=== PATIENT | female | born 1935 | race Caucasian/White ===

== ENCOUNTER 2016-06-24 10:57 | Day surgery (SDC) | payer MEDICARE, OTHER ==
[2009-01-17 12:58] VITALS: BP 118/67
[~2016-06-24] VITALS: Ht 160.1 cm; Wt 78.0 kg
[~2016-06-24 10:57] MED LIST: ACAI BERRY; ALDACTONE25 MG PO; ALLOPURINOL300 MG PO; BIOFLAX1000 MG PO; BISTOLIC; BYSTOLIC10 MG PO; CALCIUM 600600 M2 PO; CARAFATE 1GM1 G PO; CO ENZYME Q-1050 MG PO; CO-Q1060 MG PO; COENZYME Q-10200 M1 PO; COUMADIN3 MG PO; EPA FISH OIL1000 MG PO; EVISTA60 MG PO; FLAX SEED OIL1000 MG PO; FLEXERIL 1010 MG/TAB PO; FRIENDLY FLORA; IRON325 M1 PO; LASIX 20MG TABL20 MG PO; LASIX 40MG TABL40 MG PO; LASIX40 MG PO; LASIX80 MG PO; LEXAPRO20 MG PO; LIDOCAINE PATCH TOP; LIDODERM PATCH TP; LISINOPRIL20 MG PO; MAGNESIUM200 MG PO; MIRALAX PA17 GM/Dose; MIRALAX PA17 GM/Dose PO; MULTIPLE VITAMI1 CAP PO; NAPROSYN500 MG PO; NORCO 325 MG-7.1 TAB PO; OCUVITE ADULT1 SGL PO; OMEGA 31000 MG PO; OYSTER CALCIUM500 M1 PO; PANCREASE MT PO; PRILOSEC 20MG20 MG PO; PROBIOTIC FORMU1 CAP PO; PROTONIX 40MG T40 MG PO; RECLAST5 MG/100 M IV; RECLAST5 MG/1001; RECLAST5 MG/1001 IV; RELAFEN 50500 MG/TAB PO; RESERVATROL; RESERVATROL PO; ROXICODONE 55 MG/TAB PO; SINGULAIR 110 MG/TAB PO; SINGULAIR10 MG PO; SUPER EPA 2002000 MG PO; TYLENOL 500MG500 MG PO; ULTIMATE EYE SUPPORT PO; ULTRAM 50MG TAB50 MG PO; VITAMIN B COMPL1 T16; VITAMIN B12250 MCG PO; VITAMIN B122500 MCG SL; VITAMIN B12500 MCG PO; VITAMIN C BUFF500 MG PO; VITAMIN C500 MG PO; VITAMIN D 1001000 IU; VITAMIN D1000 IU PO; WELCHOL 625MG625 MG PO; ZANTAC150 MG PO; ZESTRIL20 MG PO; [UNRECOGNIZED DRUG - OTHER]
[2016-06-24] MEDS ORDERED: ZESTRIL 20MG TA20 MG PO (11:15)
[2016-06-24] MEDS ORDERED: ZYLOPRIM 300MG300 MG PO (11:15)
[2016-06-24] MEDS ORDERED: FLAX OIL1000 MG PO (11:16)
[2016-06-24] MEDS ORDERED: OYSTER SHELL C500 M4 PO (11:16)
[2016-06-24] MEDS ORDERED: ALDACTONE 25MG25 M1 PO (11:16)
[2016-06-24] MEDS ORDERED: B-12 250 MCG PO (11:17)
[2016-06-24 11:35] VITALS: BP 133/97; PULSE 75; TEMP 97.7
[2016-06-24 11:39] LABS: HEMATOCRIT 40.4 % (37.0-47.0); HEMOGLOBIN 14.2 g/dl (12.5-16.0); MEAN CELL VOLUME 97 fl (80.0-100.0); MEAN CORPUSCULAR HEMOGLOBIN 34 pg (27.0-31.0); MEAN CORPUSCULAR HGB CONC 35 g/dl (33.0-37.0); MEAN PLATELET VOLUME 9.1 fl (7.4-10.4); PLATELET COUNT 226 K/mm3 (130-400); RED BLOOD COUNT 4.15 M/mm3 (4.10-5.30); REDCELL DISTRIBUTION WIDTH-CV 14.7 % (11.5-14.5)
[2016-06-24] MEDS ORDERED: ZANTAC 150MG T150 MG PO (11:41)
[2016-06-24] MEDS ORDERED: COZAAR 50MG50 MG/TAB PO (11:42)
[2016-06-24 11:44] LABS: PROTHROMBIN TIME 11.5 SECONDS (9.7-12.8)
[2016-06-24] MEDS ORDERED: LASIX 80MG TABL80 MG PO (11:45)
[2016-06-24] MEDS ORDERED: CLARITIN 1010 MG/TAB PO (11:47)
[2016-06-24] MEDS ORDERED: MOBIC15 MG PO (11:48)
[2016-06-24] MEDS ORDERED: MAG-OX 400400 MG/TAB PO (11:48)
[2016-06-24] MEDS ORDERED: GLUMETZA500 MG PO (11:48)
[2016-06-24] MEDS ORDERED: ZOFRAN 4MG T4 MG/TAB PO (11:49)
[2016-06-24 11:50] LABS: CALCIUM 9.4 mg/dL (8.4-10.2); CREATININE, serum 1.32 mg/dL (0.52-1.25)
[2016-06-24] MEDS ORDERED: ULTRAM 50MG TAB50 MG PO (11:50)
[2016-06-24 12:40] VITALS: BP 127/75; PULSE 70
[2016-06-24 13:40] VITALS: BP 110/82; PULSE 70
[2016-06-24 14:00] VITALS: BP 108/65; PULSE 70
[2016-06-24 14:15] VITALS: BP 111/68; PULSE 70
[2016-06-24 14:30] VITALS: BP 111/68; PULSE 70
[2016-06-24] MEDS ORDERED: CLEOCIN HCL75 MG PO (14:47)
== END 2016-06-24 18:58 | disposition home or self-care (01) ==
LOC: COL.CAR 10:57
PROVIDERS: Internal Medicine Cardiovascular Disease
DX: Z45.010 Encounter for checking and testing of cardiac pacemaker pulse generator [battery] (principal); I42.9 Cardiomyopathy, unspecified; E78.2 Mixed hyperlipidemia; I10 Essential (primary) hypertension; J44.9 Chronic obstructive pulmonary disease, unspecified; F32.9 Major depressive disorder, single episode, unspecified; Z85.3 Personal history of malignant neoplasm of breast; E11.9 Type 2 diabetes mellitus without complications; M10.9 Gout, unspecified; E78.5 Hyperlipidemia, unspecified; G47.00 Insomnia, unspecified; M19.90 Unspecified osteoarthritis, unspecified site; M81.0 Age-related osteoporosis without current pathological fracture; G47.30 Sleep apnea, unspecified; Z95.0 Presence of cardiac pacemaker; Z79.899 Other long term (current) drug therapy; Z79.84 Long term (current) use of oral hypoglycemic drugs
CPT/HCPCS: C2621; J2250; J3010; J3370; J7030; J7050

== ENCOUNTER → 2017-03-05 | Outpatient (CLI) | payer MEDICARE, OTHER ==
[~2017-03-05] MED LIST changes: +ALDACTONE 25MG25 M1 PO; +B-12 250 MCG PO; +CLARITIN 1010 MG/TAB PO; +CLEOCIN HCL75 MG PO; +COZAAR 50MG50 MG/TAB PO; +FLAX OIL1000 MG PO; +GLUMETZA500 MG PO; +LASIX 80MG TABL80 MG PO; +MAG-OX 400400 MG/TAB PO; +MOBIC15 MG PO; +OYSTER SHELL C500 M4 PO; +ZANTAC 150MG T150 MG PO; +ZESTRIL 20MG TA20 MG PO; +ZOFRAN 4MG T4 MG/TAB PO; +ZYLOPRIM 300MG300 MG PO
== END ==
LOC: COL.PUL 12:54
DX: I50.42 Chronic combined systolic (congestive) and diastolic (congestive) heart failure (principal)

== ENCOUNTER 2017-07-17 13:35 | Inpatient (IN) | payer MEDICARE, OTHER ==
[~2017-07-17] VITALS: Ht 154.9 cm; Wt 80.9 kg
[~2017-07-17 13:35] MED LIST changes: -BYSTOLIC10 MG PO; +BYSTOLIC5 MG PO; +EPA FISH OIL1 SGL PO; +GLUCOPHAGE XR500 M1 PO; -GLUMETZA500 MG PO; -OMEGA 31000 MG PO
[2017-07-17 15:08] VITALS: BP 99/52; PULSE 79; TEMP 99.3
[2017-07-17] MEDS ORDERED: VENTOLIN0.09 MG IH (15:09)
[2017-07-17] MEDS ORDERED: ALBUTEROL0.83 MG/ML IH (15:10)
[2017-07-17] MEDS ORDERED: ZAROXOLYN5 MG PO (16:56)
[2017-07-17] MEDS ORDERED: CREON 36000 PO (16:58)
[2017-07-17 17:02] LABS: CALCIUM 8.7 mg/dL (8.4-10.2); CREATININE, serum 1.1 mg/dL (0.52-1.25); MAGNESIUM 2.7 mg/dL (1.6-2.3)
[2017-07-17 19:51] VITALS: BP 104/47; PULSE 80; TEMP 98.1
[2017-07-17 22:48] VITALS: BP 157/51; PULSE 67; TEMP 98
[2017-07-17 23:18] LABS: CALCIUM 8.4 mg/dL (8.4-10.2); CREATININE, serum 1.04 mg/dL (0.52-1.25)
[2017-07-17 23:33] VITALS: BP 101/49; PULSE 82; TEMP 98.3
[2017-07-18 03:18] VITALS: BP 117/60; PULSE 79; TEMP 98
[2017-07-18 04:23] LABS: CALCIUM 8.6 mg/dL (8.4-10.2); CREATININE, serum 0.95 mg/dL (0.52-1.25); POTASSIUM 3.3 mmol/L (3.4-5.0)
[2017-07-18 07:38] LABS: BASO % 0.9 % (0.0-2.0); EOS # 0.1 (0.0-0.7); EOS % 1.7 % (0-4.0); GRAN # 2.4 (1.4-6.5); GRAN % 67.5 % (42.2-75.2); HEMOGLOBIN 12.1 g/dl (12.5-16.0); LYMPH # 0.5 (1.2-3.4); LYMPH % 14.8 % (20.0-51.0); MEAN CELL VOLUME 103 fl (80.0-100.0); MEAN CORPUSCULAR HEMOGLOBIN 37 pg (27.0-31.0); MEAN CORPUSCULAR HGB CONC 36 g/dl (33.0-37.0); MONO # 0.5 (0.1-0.6); MONO % 14.5 % (1.7-9.3); PLATELET COUNT 196 K/mm3 (130-400); RED BLOOD COUNT 3.24 M/mm3 (4.10-5.30); REDCELL DISTRIBUTION WIDTH-CV 13.8 % (11.5-14.5)
[2017-07-18 07:47] LABS: HEMATOCRIT 33.3 % (37.0-47.0)
[2017-07-18 07:53] LABS: CALCIUM 8.6 mg/dL (8.4-10.2); CREATININE, serum 0.96 mg/dL (0.52-1.25); POTASSIUM 3.1 mmol/L (3.4-5.0)
[2017-07-18 08:13] VITALS: BP 111/53; PULSE 78; TEMP 97.8
[2017-07-18 11:51] VITALS: BP 111/51; PULSE 80; TEMP 97.8
[2017-07-18 16:13] VITALS: BP 118/62; PULSE 79; TEMP 97.8
[2017-07-18 17:50] LABS: CALCIUM 8.8 mg/dL (8.4-10.2); CREATININE, serum 0.98 mg/dL (0.52-1.25); POTASSIUM 3.6 mmol/L (3.4-5.0)
[2017-07-18 20:02] VITALS: BP 160/93; PULSE 80; TEMP 98.2
[2017-07-18 23:31] VITALS: BP 119/59; PULSE 80; TEMP 97.9
[2017-07-19 04:23] VITALS: BP 131/70; PULSE 80; TEMP 98.2
[2017-07-19 06:56] LABS: CALCIUM 8.7 mg/dL (8.4-10.2); CREATININE, serum 0.85 mg/dL (0.52-1.25); POTASSIUM 3.2 mmol/L (3.4-5.0)
[2017-07-19 07:55] VITALS: BP 126/77; PULSE 77; TEMP 98.2
[2017-07-19 11:31] VITALS: BP 95/64; PULSE 79; TEMP 98.3
[2017-07-19 15:33] VITALS: BP 126/80; PULSE 77; TEMP 97.9
[2017-07-19 20:01] VITALS: BP 126/51; PULSE 81; TEMP 98.9
[2017-07-19 23:20] VITALS: BP 131/75; PULSE 80; TEMP 98.8
[2017-07-20] VITALS (7 sets, daily range): BP systolic 119–175; BP diastolic 66–89; PULSE 80–91; TEMP 98.1–98.9
[2017-07-20 07:47] LABS: CALCIUM 8.9 mg/dL (8.4-10.2); CREATININE, serum 0.76 mg/dL (0.52-1.25); MAGNESIUM 2.1 mg/dL (1.6-2.3); POTASSIUM 3.7 mmol/L (3.4-5.0)
[2017-07-20] MEDS ORDERED: MIRALAX PA17 GM/Dose PO (08:55)
[2017-07-20 11:18] LABS: MUCOUS Present /lpf; PH 8 (5-8); SQUAMOUS EPITHELIAL 0-2 /hpf; URINE APPEARANCE Hazy; URINE BACTERIA Rare /hpf; URINE BILIRUBIN Negative (NEGATIVE); URINE BLOOD Negative (NEGATIVE); URINE COLOR Yellow; URINE GLUCOSE 1+ (NEGATIVE); URINE KETONE Negative (NEGATIVE); URINE LEUKOCYTE ESTERASE Trace (NEGATIVE); URINE NITRATE Negative (NEGATIVE); URINE PROTEIN(semi-quant) Negative (NEGATIVE); URINE RBC 0-2 /hpf; URINE UROBILINOGEN Negative (NEGATIVE)
[2017-07-20 11:20] LABS: COLLECTION METHOD CLEAN CATCH
[2017-07-21 03:48] VITALS: BP 141/90; PULSE 81; TEMP 97.7
[2017-07-21 07:34] LABS: BASO % 0.7 % (0.0-2.0); EOS # 0.2 (0.0-0.7); GRAN # 4.2 (1.4-6.5); HEMOGLOBIN 11.5 g/dl (12.5-16.0); LYMPH # 0.9 (1.2-3.4); LYMPH % 14.8 % (20.0-51.0); MEAN CELL VOLUME 105 fl (80.0-100.0); MEAN CORPUSCULAR HEMOGLOBIN 36 pg (27.0-31.0); MEAN CORPUSCULAR HGB CONC 35 g/dl (33.0-37.0); MEAN PLATELET VOLUME 8.9 fl (7.4-10.4); MONO # 0.5 (0.1-0.6); MONO % 8.2 % (1.7-9.3); PLATELET COUNT 192 K/mm3 (130-400); RED BLOOD COUNT 3.16 M/mm3 (4.10-5.30); REDCELL DISTRIBUTION WIDTH-CV 14.2 % (11.5-14.5)
[2017-07-21 07:39] LABS: HEMATOCRIT 33.2 % (37.0-47.0)
[2017-07-21 07:42] LABS: CALCIUM 9.3 mg/dL (8.4-10.2); CREATININE, serum 0.8 mg/dL (0.52-1.25); POTASSIUM 4.1 mmol/L (3.4-5.0)
[2017-07-21 07:51] VITALS: BP 146/81; PULSE 90; TEMP 99
== END 2017-07-21 10:45 | disposition home health service (06) | DRG 641 ==
LOC: MEDICAL 13:35
PROVIDERS: Nurse Practitioner Family; Physician Assistant; Student in an Organized Health Care Education/Training Program
DX: E87.1 Hypo-osmolality and hyponatremia (principal); I50.32 Chronic diastolic (congestive) heart failure; I42.0 Dilated cardiomyopathy; E87.6 Hypokalemia; T50.1X5A Adverse effect of loop [high-ceiling] diuretics, initial encounter; I11.0 Hypertensive heart disease with heart failure; I25.10 Atherosclerotic heart disease of native coronary artery without angina pectoris; Z95.0 Presence of cardiac pacemaker; E11.9 Type 2 diabetes mellitus without complications; Z85.3 Personal history of malignant neoplasm of breast; E87.8 Other disorders of electrolyte and fluid balance, not elsewhere classified; K58.1 Irritable bowel syndrome with constipation; J44.9 Chronic obstructive pulmonary disease, unspecified
CPT/HCPCS: OP; 99223-AI; 99232-AI; 99233-AI; 99239; J1644; J7030; J7131

== ENCOUNTER 2018-06-17 06:46 | Day surgery (SDC) | payer MEDICARE, OTHER ==
[2009-01-17 12:58] VITALS: BP 118/67
[2018-06-17] VITALS (11 sets, daily range): BP systolic 114–151; BP diastolic 45–87; PULSE 65–89; TEMP 97.7–98
[~2018-06-17] VITALS: Ht 160 cm; Wt 85.0 kg
[~2018-06-17 06:46] MED LIST changes: +ALBUTEROL0.83 MG/ML IH; +ASPI325T6 PO; +CREON 36000 PO; +VENTOLIN0.09 MG IH; +VITAMIN D 1001000 IU PO; +ZAROXOLYN5 MG PO; +[UNRECOGNIZED DRUG - OTHER] PO
[2018-06-17] MEDS ORDERED: BENICAR 20MG TA20 MG PO ×2 (07:28→07:33)
--- NOTE | 2018-06-17 12:37 | NUR ---
PT TO ROOM 332 PER BED WITH REPORT FROM VERONICA VACA PACU @1210. PT IS A/O X3, LUNGS CTA, BOWEL SOUNDS PRESENT, PEDAL PULSES PALPABLE. SCDS BILATERALLY. SCDS, TEDS INPLACE. AQUACEL TO RIGHT HIP. IV TO PUMP, PT REPORTS PAIN OF 3/10. SISTER AT BEDSIDE.
--- NOTE | 2018-06-17 23:15 | NUR ---
Patient up to the bedside commode. Patient did well pivoting to the commode, but her legs buckled on the pivot back to the bed. Gait belt utilized. Patient states she is able to feel her legs. C/o pain and PRN pain medication administered. This was effective. Patient has ice pack to right hip. Resting in bed with call light in reach.
--- NOTE | 2018-06-18 03:06 | NUR ---
Patient resting well throughout the night. Denies pain. Fluids continue. Patient stand-pivots to the restroom via 1 assist from staff. Able to complete hygiene independently.
[2018-06-18 03:37] VITALS: BP 142/54; PULSE 80; TEMP 98.1
--- NOTE | 2018-06-18 06:40 | NUR ---
bedside shift report received from NOLA Mays
--- NOTE | 2018-06-18 07:30 | NUR ---
assisted up to bathroom, was able to ambulate into bathroom and back out with only standby assist and her legs were stronger than last night, will sit on side of bed to finish breakfast
[2018-06-18 07:38] VITALS: BP 177/76; PULSE 87; TEMP 98.1
[2018-06-18] MEDS ORDERED: NORCO 325 MG-7.1 TAB PO (08:06)
[2018-06-18] MEDS ORDERED: ASPI325T6 PO (08:06)
--- NOTE | 2018-06-18 08:20 | NUR ---
had breakfast and tolerated well, full assessment completed, see interventins for further info, denies needs
--- NOTE | 2018-06-18 10:15 | NUR ---
resting in bed watching TV, waiting for physical therapy
--- NOTE | 2018-06-18 10:40 | NUR ---
ambulated out to torres with [employer]IEF and moved well
--- NOTE | 2018-06-18 11:38 | NUR ---
First visit from the elevator mechanic. No needs right now.
[2018-06-18 11:44] VITALS: BP 151/67; PULSE 82; TEMP 98.2
--- NOTE | 2018-06-18 11:45 | NUR ---
resting in bed, states is having more pain with this surgery thatn the one on the left, medicated with hydrocodone 7.5mg 1 tab, is unsure about going home later today
[2018-06-18 15:03] VITALS: BP 162/71; PULSE 80; TEMP 97.7
--- NOTE | 2018-06-18 15:15 | NUR ---
Dr Razo' nurse notified she would like to go home today
--- NOTE | 2018-06-18 16:07 | NUR ---
LISA rangel met with patient and patient's sister to discuss discharge plan. Patient lives alone in [place]. Patient's PCP is Dr. Valencia and she uses the [facility]. Patient has a walker and cane at home and reports independence with ADLs. Patient believes she has a DPOA-HC completed that designates her sister (Glo). LISA rangel could not locate in EMR. Patient was not interested in completing another one at this time. No identified needs. Patient is to discharge back home today (06/18) with support from her sister (Glo).
--- NOTE | 2018-06-18 16:16 | NUR ---
discharge instructions given to marisol and her sister, verbalizes understanding
--- NOTE | 2018-06-18 16:25 | NUR ---
discharged per WC
== END 2018-06-18 16:25 | disposition home or self-care (01) ==
LOC: JCCO 06:46 → JCC 06:46 → JCCO 12:00 → SDCO 12:00 → JCC 12:00 → SDCO 14:45 → JCCO 06-18 16:25
DX: M70.61 Trochanteric bursitis, right hip (principal); Z79.899 Other long term (current) drug therapy; Z91.040 Latex allergy status; Z88.2 Allergy status to sulfonamides; Z86.718 Personal history of other venous thrombosis and embolism; Z85.028 Personal history of other malignant neoplasm of stomach; Z85.00 Personal history of malignant neoplasm of unspecified digestive organ; Z92.3 Personal history of irradiation; E11.9 Type 2 diabetes mellitus without complications; Z79.84 Long term (current) use of oral hypoglycemic drugs; I38 Endocarditis, valve unspecified; E78.00 Pure hypercholesterolemia, unspecified; Z90.49 Acquired absence of other specified parts of digestive tract; Z95.0 Presence of cardiac pacemaker; Z96.651 Presence of right artificial knee joint; Z83.3 Family history of diabetes mellitus; Z82.49 Family history of ischemic heart disease and other diseases of the circulatory system; Z96.612 Presence of left artificial shoulder joint; Z79.82 Long term (current) use of aspirin; G47.33 Obstructive sleep apnea (adult) (pediatric); M10.9 Gout, unspecified; K58.9 Irritable bowel syndrome, unspecified; I10 Essential (primary) hypertension; Z85.3 Personal history of malignant neoplasm of breast; D64.9 Anemia, unspecified
CPT/HCPCS: OP; J0690; J1100; J1170; J1650; J1885; J2250; J2370; J2405; J2795; J3010

== ENCOUNTER → 2018-09-07 | Outpatient (CLI) | payer MEDICARE, OTHER ==
[~2018-09-07] MED LIST changes: +BENICAR 20MG TA20 MG PO
== END ==
LOC: COL.RAD 12:48
DX: M16.11 Unilateral primary osteoarthritis, right hip (principal)

== ENCOUNTER 2019-12-25 10:28 | Emergency (ER) | payer MEDICARE, OTHER ==
[2009-01-17 12:58] VITALS: BP 118/67
[~2019-12-25] VITALS: Ht 160 cm; Wt 76.4 kg
[~2019-12-25 10:28] MED LIST changes: +DEMADEX 20MG20 M1 PO; +DEMADEX10 MG PO; +NORCO 325 MG-51 TAB PO; +PEPCID 20MG TAB20 MG PO
[2019-12-25 10:34] VITALS: TEMP 97.1
[2019-12-25 11:38] VITALS: BP 112/70; PULSE 81
== END 2019-12-25 11:38 | disposition home or self-care (01) ==
LOC: COL.ER 10:28
DX: S56.921A Laceration of unspecified muscles, fascia and tendons at forearm level, right arm, initial encounter (principal); E11.9 Type 2 diabetes mellitus without complications; I10 Essential (primary) hypertension; Z88.0 Allergy status to penicillin; Z88.2 Allergy status to sulfonamides; Z88.8 Allergy status to other drugs, medicaments and biological substances; W01.198A Fall on same level from slipping, tripping and stumbling with subsequent striking against other object, initial encounter

== ENCOUNTER 2020-02-09 17:15 | Emergency (ER) | payer MEDICARE, OTHER ==
[2009-01-17 12:58] VITALS: BP 118/67
[~2020-02-09] VITALS: Ht 160 cm; Wt 75.9 kg
[2020-02-09 17:26] VITALS: TEMP 97.6
[2020-02-09 19:50] VITALS: BP 90/68; PULSE 80
--- NOTE | 2020-02-10 14:33 | NUR ---
health care social worker spoke with patient's friend, Raji Alcaarz c# [phone] regarding the arrangments for home health. Worker provided Medicare.gov information for information on local home health agencies. Raji states patient has been to [facility] and would like to use their home health. Worker contacted Gita at [facility] and faxed clinical information. Worker contacted NOLA Horn with Dr begum and requested orders to be sent to [facility]. [facility] can visit patient this date with orders. Worker left message for Raji to follow up regarding above arrangements.
== END 2020-02-09 19:50 | disposition home or self-care (01) ==
LOC: COL.ER 17:15
DX: S42.402A Unspecified fracture of lower end of left humerus, initial encounter for closed fracture (principal); Z88.0 Allergy status to penicillin; Z88.2 Allergy status to sulfonamides; Z88.8 Allergy status to other drugs, medicaments and biological substances; W01.0XXA Fall on same level from slipping, tripping and stumbling without subsequent striking against object, initial encounter

== ENCOUNTER 2020-12-19 06:48 | Day surgery (SDC) | payer MEDICARE, OTHER ==
[2009-01-17 12:58] VITALS: BP 118/67
[~2020-12-19] VITALS: Ht 160 cm; Wt 69.3 kg
[2020-12-19] VITALS (8 sets, daily range): BP systolic 91–154; BP diastolic 65–117; PULSE 76–88; TEMP 98.9
[2020-12-19 07:39] LABS: HEMOGLOBIN 11.9 g/dl (12.5-16.0); MEAN CELL VOLUME 107 fl (80.0-100.0); MEAN CORPUSCULAR HEMOGLOBIN 36 pg (27.0-31.0); MEAN CORPUSCULAR HGB CONC 33 g/dl (33.0-37.0); MEAN PLATELET VOLUME 9.8 fl (7.4-10.4); PLATELET COUNT 156 K/mm3 (130-400); RED BLOOD COUNT 3.33 M/mm3 (4.10-5.30); REDCELL DISTRIBUTION WIDTH-CV 14.1 % (11.5-14.5)
[2020-12-19 07:40] LABS: HEMATOCRIT 35.6 % (37.0-47.0)
[2020-12-19 07:53] LABS: PROTHROMBIN TIME 10.8 SECONDS (9.7-12.8)
[2020-12-19 08:00] LABS: CALCIUM 9.3 mg/dL (8.4-10.2); CREATININE, serum 0.99 mg/dL (0.57-1.11); POTASSIUM 4.1 mmol/L (3.5-4.5)
[2020-12-19] MEDS ORDERED: ALBUTEROL0.83 MG/ML IH (08:40)
[2020-12-19] MEDS ORDERED: XANAX .25M0.25 MG/TA PO (08:41)
[2020-12-19] MEDS ORDERED: PERIDEX (CHLOR480 ML MM (08:42)
[2020-12-19] MEDS ORDERED: CREON 36000 PO (08:43)
[2020-12-19] MEDS ORDERED: ICAPS TABLET1 EACH PO (08:44)
[2020-12-19] MEDS ORDERED: NORCO 325 MG-51 TAB PO (08:44)
[2020-12-19] MEDS ORDERED: IMODIUM 2MG CAPS2 MG PO (08:45)
[2020-12-19] MEDS ORDERED: ZAROXOLYN 2.52.5 MG PO (08:46)
[2020-12-19] MEDS ORDERED: GOOD NEIGH1200 MG/15 PO (08:47)
[2020-12-19] MEDS ORDERED: MINERIN CREME454 GM TP (08:47)
[2020-12-19] MEDS ORDERED: PRIL40 PO (08:48)
[2020-12-19] MEDS ORDERED: ZOFRAN ODT4 MG PO (08:52)
[2020-12-19] MEDS ORDERED: OSCAL 500 TAB500 MG PO (08:53)
[2020-12-19] MEDS ORDERED: PROBIOTIC ACID1 EAC3 PO (08:54)
[2020-12-19] MEDS ORDERED: FENTANYL 25 MCG TD (08:54)
[2020-12-19] MEDS ORDERED: ULTRAM 50MG TAB50 MG PO (08:55)
--- NOTE | 2020-12-19 09:21 | NUR ---
SEE MERGE FOR MEDICATION ADMINISTRATION TIME/DOSAGES AND INTRA/POST SEDATION ASSESSMENT.
--- NOTE | 2020-12-19 10:15 | NUR ---
Report from Mary VACA. Dressing to left upper chest CD&I, ice applied. VSS
--- NOTE | 2020-12-19 12:00 | NUR ---
INT x2 discontinued intact. Discharge instructions given. Transferred to [facility] [employer] to transport home
== END 2020-12-19 12:00 | disposition home or self-care (01) ==
LOC: COL.CAR 06:48
PROVIDERS: Internal Medicine Cardiovascular Disease
DX: Z45.02 Encounter for adjustment and management of automatic implantable cardiac defibrillator (principal); Z85.3 Personal history of malignant neoplasm of breast
CPT/HCPCS: C2621; J2250; J3010; J3370; J7030; J7050